=== PATIENT | male | born 1990 | race Hispanic/Latino ===

== ENCOUNTER 2022-07-31 22:11 | Emergency (ER) | payer OTHER ==
--- OUTSIDE RECORDS SUMMARY | 2022-07-31 22:14 | XMS REPORT | Continuity of Care Document ---
:1990 Author Organization [facility] Address [address] [place] [address] Care Team Providers Name Role Phone Austin Hernandez DO Attending Clinician Doctor Unassigned, [place] Attending Clinician Unavailable Lab, Adc Fam Pob I Attending Clinician Unavailable Sharla Shaw MD Attending Clinician SHARLA SHAW Attending Clinician Unavailable SUZY PINZON Attending Clinician Unavailable Payers Payer Name Policy Type Policy Number Effective Date Expiration Date S ource Problems This patient has no known problems. Allergies, Adverse Reactions, Alerts Allergy Allergy Status Severity Reaction(s) Onset Inactive Treating Comm ents Source Name Type Date Date Clinician [place] DRUG Active Unknown-Cmnt 2019-06 Un aj E INGREDI 08-02 ity of 00:00: [place] 00 [facility] [place] Pine[place]l Propensi Active Unknown - 2019-06 Uni vers e ty to See comments 08-02 ity of adverse 00:00: [place] reaction 00 Medical s [place] NO KNOWN Drug Active Univers ALLERGIE Class ity of S [facility] Social History Social Habit Start Date Stop Date Quantity Comments Source Exposure to Not sure [facility] SARS-CoV-2 [place] [facility] (event) Branch Tobacco use and 2020-06-01 2020-06-01 Never used Universit y of exposure 00:00:00 00:00:00 [facility] Alcohol intake 2020-06-01 2020-06-01 Ex-drinker [facility] 00:00:00 00:00:00 (finding) [facility] Sex Ass[birth year] At [birth year] Universit y of 00:00:00 00:00:00 [facility] Smoking Status Start Date Stop Date Source Unknown if ever smoked Universit y of [facility] Never smoker General acute hospital Medications Ordered Filled Start Stop Current Ordering Indication Dosage Frequency Signature Comments Components Source Medication Medication Date Date Medication? Clinician (SIG) Name Name No known No Univers medications ity [facility] No known No [facility] No [facility] No [facility] No known No [facility] No known No [facility] Vital Signs Vital Name Observation Time Observation Value Comments Source Systolic blood 2020-06-01 20:40:00 163 mm[Hg] Univer [facility] of [facility] Diastolic blood 2020-06-01 20:40:00 96 mm[Hg] Unive rs[facility] of [facility] Heart rate 2020-06-01 20:40:00 99 /min Universi ty [facility] Body temperature 2020-06-01 20:40:[address] [facility] [place] [place] Body height 2020-06-01 20:40:00 167.6 cm [facility] Body weight 2020-06-01 20:40:00 158.759 kg [facility] BMI 2020-06-01 20:40:00 56.49 kg/m2 [facility] Procedures Procedure Date / Time Performed Performing Clinician Sour e EXTERNAL PROVIDER 2020-07-01 06:01:00 Doctor Unassigned, No Univ [facility] RECORDS Name [facility] Encounters Start End Encounter Admission Attending Care Care Encounter Source Date/Time Date/Time Type Type Clinicians Facility Department ID 2020-08-31 2020-08-31 Patient ANISH Hernandez [id number] Univers 00:00:00 00:00:00 Outreach [place] PRIMARY [id number] i ty of [facility] [id number] Ritu AMARO [phone] Al dical 388 Branch 2020-07-01 2020-07-01 Orders Doctor ANNALISE [id number] Univers 00:00:00 00:00:00 Only Unassigned, THOMAS [id number] ity of [place] [facility] [id number] Bashir as [phone] [facility] 009 Branch 2020-06-01 2020-06-01 Construction Area Manager Lab, Adc Fam Pob I [facility] [id number] Univers 14:57:42 15:17:42 Visit Sharla Shaw [facility] [id number] ity of [place] [id number] Bashir as Professio [phone] [address] Office Building One 2020-06-01 2020-06-01 [facility] [id number] Univers 14:30:52 15:00:52 Visit Sharla [facility] [id number] it y of [place] [id number] Bashir as Professio [phone] [address] Office Building One 2020-06-01 2020-06-01 [facility] [id number] Univers 15:00:00 15:00:00 SHARLA y [facility] 2020-05-29 2020-05-[address] [facility] [id number] Univers 11:20:00 11:20:00 SUZY ity [facility] 2020-05-29 2020-05-29 Letter Doctor ANNALISE [id number] Univers 00:00:00 00:00:00 (Out) Unassigned, THOMAS [id number] ity of [place] [facility] [id number] Bashir as [phone] [address] 2020-05-29 2020-05-29 Letter Doctor ANNALISE [id number] Univers 00:00:00 00:00:00 (Out) Unassigned, THOMAS [id number] ity of [place] [facility] [id number] Bashir as [phone] [address] Results This patient has no known results.
[2022-07-31] MEDS ORDERED: METOPROLOL TAR 50 MG TAB ONE (22:39)
[2022-07-31 23:29] LABS: Blood Gas Oxyhemoglobin 94.1 % (94-97); Blood O2 Saturation 96.3 % (92-98.5)
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
[2022-08-01] MEDS ORDERED: SILVER SULFADIAZINE 1% 25 GM TOP ONE (00:51)
[2022-08-01 02:05] VITALS: BP 133/65; TEMP 99; O2SAT 97
== END 2022-08-01 01:10 | disposition home or self-care (01) ==
LOC: ER 22:11
DX: T21.29XA Burn of second degree of other site of trunk, initial encounter (principal); Z91.018 Allergy to other foods
CPT/HCPCS: 82805